=== PATIENT | male | born 1955 | race Caucasian/White ===

== ENCOUNTER 2020-12-30 16:04 | Emergency (ER) | payer MEDICARE, BC, SELFPAY ==
--- NOTE | ~2020-12-30 | XR_ITS ---
EXAMINATION: RIGHT SHOULDER, RIGHT HUMERUS, RIGHT ELBOW CLINICAL INFORMATION: Right arm injury COMPARISON: None TECHNIQUE: 3 views right shoulder, 2 views right humerus, 4 views right elbow. FINDINGS: Right shoulder: There is a markedly comminuted fracture involving the humeral head and neck. No dislocation is seen but the glenohumeral joint is widened indicative of hemarthrosis. Right humerus: Aside from the humeral head, humerus otherwise appears normal. Right elbow: No definite abnormality is seen involving the elbow. The lateral view is suboptimal however and therefore assessment for joint effusion cannot be performed with accuracy. XR/XR shoulder RT min 2V IMPRESSION: Comminuted fracture right humeral head and neck as described above.
--- NOTE | ~2020-12-30 | XR_ITS ---
EXAMINATION: RIGHT SHOULDER, RIGHT HUMERUS, RIGHT ELBOW CLINICAL INFORMATION: Right arm injury COMPARISON: None TECHNIQUE: 3 views right shoulder, 2 views right humerus, 4 views right elbow. FINDINGS: Right shoulder: There is a markedly comminuted fracture involving the humeral head and neck. No dislocation is seen but the glenohumeral joint is widened indicative of hemarthrosis. Right humerus: Aside from the humeral head, humerus otherwise appears normal. Right elbow: No definite abnormality is seen involving the elbow. The lateral view is suboptimal however and therefore assessment for joint effusion cannot be performed with accuracy. XR/XR elbow RT min 3V IMPRESSION: Comminuted fracture right humeral head and neck as described above.
--- NOTE | ~2020-12-30 | XR_ITS ---
EXAMINATION: RIGHT SHOULDER, RIGHT HUMERUS, RIGHT ELBOW CLINICAL INFORMATION: Right arm injury COMPARISON: None TECHNIQUE: 3 views right shoulder, 2 views right humerus, 4 views right elbow. FINDINGS: Right shoulder: There is a markedly comminuted fracture involving the humeral head and neck. No dislocation is seen but the glenohumeral joint is widened indicative of hemarthrosis. Right humerus: Aside from the humeral head, humerus otherwise appears normal. Right elbow: No definite abnormality is seen involving the elbow. The lateral view is suboptimal however and therefore assessment for joint effusion cannot be performed with accuracy. XR/XR humerus RT IMPRESSION: Comminuted fracture right humeral head and neck as described above.
[2020-12-30 16:43] VITALS: BP 171/82; PULSE 80; RESP 17; TEMP 36.8; O2SAT 96; BMI 28.1
[2020-12-30] MEDS: Ibuprofen 600 MG TABLET PO (16:51)
--- NOTE | 2020-12-30 19:07 | ED_ITS ---
HPI - Extremity Problem General Chief complaint: Extremity Injury, Upper Stated complaint: arm inj Time Seen by Provider: 12/30/20 19:07 History of Present Illness HPI Narrative: Patient complains of right arm and right shoulder pain after trip and fall today no other injury, no head injury no neck pain no numbness weakness or tingling Related Data Previous Rx's Medication Instructions Recorded hydrocodone 5 mg-acetaminophen 325 1 tab PO Q6H PRN #20 tab 12/30/20 mg tablet Allergies Allergy/AdvReac Type Severity Reaction Status Date / Time No Known Allergies Allergy Verified 12/30/20 16:42 Review of Systems Review of Systems: Positive for right shoulder pain Negatives are no dizziness no weakness no fainting no headache no neck pain no chest pain no shortness of breath no back pain no other extremity injuries Yes all other systems are reviewed and are negative [facility] Past Medical History Source: nursing notes reviewed Medical History (Updated 12/31/20 @ 00:02 by Jaye Tolliver) High blood pressure High cholesterol Paroxysmal A-fib Surgical History (Updated 12/30/20 @ 16:45 by Lisa Trejo RN) S/P hip replacement Social History Social History Advance Directives: No Advance Directives Information Provided: No Physical Exam Vital Signs: Vital Signs: Last Vital Signs Temp 98.2 F 12/30/20 16:43 Pulse 80 12/30/20 16:43 Resp 17 12/30/20 16:43 BP 171/82 H 12/30/20 16:43 Pulse Ox 96 12/30/20 16:43 Body Mass Index 28.1 General appearance no acute distress Head is normocephalic atraumatic Neck is supple nontender Respiratory no distress The chest is clear to auscultation bilateral The abdomen soft nontender Extremities the right shoulder had tenderness around anterior and lateral right shoulder there was no ecchymosis no swelling, full range of motion was very limited and the arm is held in internal rotation Neurovascular intact distal The other extremities are normal The back full range of motion The skin intact with no lacerations Neuro no focal motor or sensory deficit Course Course Course Narrative: X-ray Reevaluation(s) Reevaluation #1: X-ray showed a comminuted fracture of the right shoulder humeral head and neck Patient is given information for orthopedic follow-up and given a sling Discharge Plan Discharge Clinical Impression: Closed right humeral fracture Patient Disposition: Home, Self-Care Additional Instructions: Follow this week with orthopedist Wear sling X-ray did show broken bones in the shoulder and orthopedist will advise on best treatment plan You can use [id number] Motrin or Tylenol as needed, and you can use Vicodin if they are not sufficient Vicodin does contain Tylenol so be careful not to take too much tylenol Prescriptions: New hydrocodone-acetaminophen 5-325 mg tablet 1 tab PO Q6H PRN (Reason: pain) Qty: 20 RF: 0 Referrals: Gillian Conroy MD [Physician] - 2 days (Right shoulder fracture) Interventions: ED Discharge Assessment Last Done: 12/30/20 19:38 Discharge Date/Time: 12/30/20 19:44
== END 2020-12-30 19:44 | disposition home or self-care (01) ==
PROVIDERS: Emergency Provider Emergency Medicine
DX: S42.351A Displaced comminuted fracture of shaft of humerus, right arm, initial encounter for closed fracture (principal); W01.0XXA Fall on same level from slipping, tripping and stumbling without subsequent striking against object, initial encounter; I48.0 Paroxysmal atrial fibrillation; Y93.89 Activity, other specified; Y92.512 Supermarket, store or market as the place of occurrence of the external cause; Y99.9 Unspecified external cause status
CPT/HCPCS: 73030; 73060; 73080; 99283; 99284